=== PATIENT | male | born 1985 | race Caucasian/White ===

== ENCOUNTER 2017-04-13 11:33 | Emergency (ER) | payer OTHER ==
[2017-04-13 11:44] VITALS: RESP 18
--- NOTE | 2017-04-13 11:58 | C.PDOC ---
History Of Present Illness 32M c/o anterior chest pain and mid back pain for the last couple days. he says he has been lifting his child which makes it worse. he has not taken anything for pain. denies any pmh, meds, or drugs. Time Seen by Provider: 04/13/17 11:46 Chief Complaint (Nursing): Chest Pain Past Medical History Vital Signs: Last Vital Signs Temp 98.4 F 04/13/17 11:42 Pulse 93 H 04/13/17 11:42 Resp 18 04/13/17 11:42 BP 129/77 04/13/17 11:42 Pulse Ox 97 04/13/17 13:08 Family History: States: Other Other Family History: nc - Social History Hx Alcohol Use: No Hx Substance Use: No - Immunization History Hx Tetanus Toxoid Vaccination: Yes Hx Influenza Vaccination: Yes Hx Pneumococcal Vaccination: No Review Of Systems Constitutional: Negative for: Fever, Chills Cardiovascular: Positive for: Chest Pain. Negative for: Palpitations, Edema Respiratory: Negative for: Cough, Shortness of Breath Gastrointestinal: Negative for: Nausea, Vomiting, Abdominal Pain Musculoskeletal: Positive for: Back Pain Neurological: Negative for: Weakness, Numbness Physical Exam - Physical Exam Appears: Well, Non-toxic, No Acute Distress Skin: Warm, Dry Head: Atraumatic Oral Mucosa: Moist Chest: Tenderness (reproducible pain w palp over sternum) Cardiovascular: Rhythm Regular Respiratory: No Decreased Breath Sounds, No Accessory Muscle Use, No Rales, No Rhonchi, No Stridor, No Wheezing Gastrointestinal/Abdominal: Soft, No Tenderness Back: Paraspinal Tenderness Extremity: No Swelling Pulses: Left Radial: Normal, Right Radial: Normal Neurological/Psych: Oriented x3, Other (no focal deficits) ED Course And Treatment - Laboratory Results Result Diagrams: 04/13/17 12:21 04/13/17 12:21 O2 Sat by Pulse Oximetry: 97 Medical Decision Making Medical Decision Making: ecg- nsr 96, nl axis, no acute ischemia 120pm pt feels better. disc results, plan for f/u, rtr Disposition - Disposition Referrals: [facility] [Outside] Disposition: HOME/ ROUTINE Disposition Time: 13:07 Condition: STABLE Additional Instructions: Please follow up with your doctor. Return to the ER for any worsening symptoms or for any other concerns. Prescriptions: Naproxen [Naprosyn] 500 mg PO Q12H PRN #10 tablet PRN Reason: Pain, Moderate (4-7) Instructions: Chest Pain (ED) Forms: [facility] (Bengali), Gen Discharge Inst Georgian Print Language: BAHAMIAN - Clinical Impression Clinical Impression: Chest pain, Back pain
--- NOTE | 2017-04-13 12:08 | RAD ---
HISTORY: cp COMPARISON: None available. TECHNIQUE: Chest PA and lateral FINDINGS: LUNGS: No focal consolidation. Please note that chest x-ray has limited sensitivity for the detection of pulmonary masses. PLEURA: No significant pleural effusion identified. No definite pneumothorax . CARDIOVASCULAR: The cardiomediastinal silhouette appears within normal limits of size. OSSEOUS STRUCTURES: No acute osseous abnormality identified. VISUALIZED UPPER ABDOMEN: Unremarkable. OTHER FINDINGS: None. IMPRESSION: No focal consolidation, significant pleural effusion, or definite pneumothorax identified.
[2017-04-13 12:29] LABS: BASO % 0.4 % (0.0-2.0); EOS # 0.3 K/uL (0.0-0.7); EOS % 5.6 % (0.0-4.0); HEMATOCRIT 43.9 % (35.0-51.0); LYMPH # 2.2 K/uL (1.0-4.3); LYMPH % 36.5 % (20.0-40.0); MEAN CELL VOLUME 92.1 fL (80.0-94.0); MEAN CORPUSCULAR HEMOGLOBIN 31.4 pg (27.0-31.0); MEAN CORPUSCULAR HGB CONC 34.1 g/dL (33.0-37.0); MEAN PLATELET VOLUME 10.5 fL (7.2-11.7); MONO # 0.4 K/uL (0.0-0.8); MONO % 7.3 % (0.0-10.0); NRBC % 0.1 % (0.0-2.0); RED CELL DISTRIBUTION WIDTH 12.8 % (11.5-14.5); WHITE BLOOD COUNT 5.9 K/uL (4.8-10.8)
[2017-04-13 12:47] LABS: ALB/GLOB RATIO 1.3 (1.0-2.1); ALKALINE PHOSPHATASE 56 U/L (38-126); ALT/SGPT 72 U/L (21-72); AST/SGOT 48 U/L (17-59); BILIRUBIN,TOTAL 0.9 mg/dL (0.2-1.3); BLOOD UREA NITROGEN 12 mg/dL (9-20); CALCIUM 8.5 mg/dl (8.6-10.4); CARBON DIOXIDE 22 mmol/L (22-30); CHLORIDE 102 mmol/L (98-107); GFR AFRICAN-AMERICAN > 60; GLUCOSE,RANDOM 94 mg/dL (75-110); SODIUM 136 mmol/L (132-148); TOTAL PROTEIN 7.5 g/dL (6.3-8.3)
[2017-04-13 14:24] VITALS: BP 117/75; PULSE 76; TEMP 98.2; O2SAT 96
== END 2017-04-13 14:15 | disposition home or self-care (01) ==
LOC: C.ER 11:33
DX: R07.89 Other chest pain (principal); M54.9 Dorsalgia, unspecified
CPT/HCPCS: 71020; 80053; 83690; 84484; 85025; 96374; 99284; J1885

== ENCOUNTER 2017-09-22 15:25 | Emergency (ER) | payer OTHER ==
[2017-09-22 15:42] VITALS: BP 128/75; PULSE 87; RESP 16; TEMP 98.3; O2SAT 97
[2017-09-22] MEDS ORDERED: Lidocaine 2% Inj (20ml) INFIL STA (15:49)
[2017-09-22] MEDS ORDERED: Bacitracin 500 Units/gm Oint Foilpak UD TOP STA (15:49)
[2017-09-22] MEDS ORDERED: Tetanus/Diphtheria Toxoids 0.5 ml Syringe IM ONE (15:49)
--- NOTE | 2017-09-22 15:50 | C.PDOC ---
History Of Present Illness 32 year old male presents to the ED for evaluation of a laceration sustained at home prior to arrival. Patient reports that he was fixing a dryer at home when he accidentally cut himself with a sharp piece of metal. Patient does not remember the last Tetanus shot. Patient denies fever, chill, weakness, numbness. Time Seen by Provider: 09/22/17 15:47 Chief Complaint (Nursing): Abnormal Skin Integrity History Per: Patient History/Exam Limitations: no limitations Onset/Duration Of Symptoms: Hrs Current Symptoms Are (Timing): Still Present Location Of Injury: Left: Arm (distal forearm ) Quality Of Symptoms: Painful Recent travel outside of the [place]: No Additional History Per: Patient Past Medical History Reviewed: Historical Data, Nursing Documentation, Vital Signs Vital Signs: Last Vital Signs Temp 98.3 F 09/22/17 15:38 Pulse 87 09/22/17 15:38 Resp 16 09/22/17 15:38 BP 128/75 09/22/17 15:38 Pulse Ox 97 09/22/17 16:59 - Medical History PMH: No Chronic Diseases Surgical History: No Surg Hx Family History: States: Unknown Family Hx - Social History Hx Alcohol Use: No Hx Substance Use: No - Immunization History Hx Tetanus Toxoid Vaccination: Yes (2017) Hx Influenza Vaccination: Yes Hx Pneumococcal Vaccination: Yes Review Of Systems Constitutional: Negative for: Fever, Chills Cardiovascular: Negative for: Chest Pain Respiratory: Negative for: Cough, Shortness of Breath Skin: Positive for: Other (Laceration). Negative for: Rash Neurological: Negative for: Weakness, Numbness Physical Exam - Physical Exam Appears: Non-toxic, No Acute Distress Skin: Normal Color, Warm, Dry Head: Atraumatic, Normacephalic Eye(s): bilateral: Normal Inspection Nose: No Discharge Oral Mucosa: Moist Neck: Normal ROM, Supple Extremity: Normal ROM, No Tenderness, Capillary Refill (< 2 seconds), No Swelling, Other (2.5 cm linear laceration to left distal forearm above wrist) Pulses: Left Radial: Normal, Right Radial: Normal Neurological/Psych: Oriented x3, Normal Motor, Normal Sensation Gait: Steady ED Course And Treatment O2 Sat by Pulse Oximetry: 97 (ON RA) Pulse Ox Interpretation: Normal Laceration - Laceration Repair left distal forearm Wound Length (In cm): 2.5 Description Of Wound: Linear Wound Cleansed With: Sterile Saline Anesthesia: Lidocaine 2% Wound Examination: Irrigated With Saline, No FB With Wound Exploration Wound Closure: [place] (X6) Wound Complexity: Simple Medical Decision Making Medical Decision Making: Plan: * Bacitracin * Tetanus UTD Patient had bacitracin dressing applied and was sent home. Disposition - Disposition Disposition: HOME/ ROUTINE Disposition Time: 16:56 Condition: STABLE Additional Instructions: Follow up with your PMD within 1-2 days. Return to ED if feel worse. Staple removal in 10 days. Prescriptions: Bacitracin OINT 1 applic TP TID #45 g Instructions: Laceration Repair With Yared (DC) Forms: [facility] (Upper Sorbian) Print Language: KAZAKH - Clinical Impression Clinical Impression: Forearm laceration - PA / POLICE COMMISSIONER / Resident Statement MD/DO has reviewed & agrees with the documentation as recorded. - Scribe Statement The provider has reviewed the documentation as recorded by the Scribe Champ Miguel All medical record entries made by the Scribe were at my direction and personally dictated by me. I have reviewed the chart and agree that the record accurately reflects my personal performance of the history, physical exam, medical decision making, and the department course for this patient. I have also personally directed, reviewed, and agree with the discharge instructions and disposition.
[2017-09-22] MEDS ORDERED: Bacitracin 500 Units/gm Oint Foilpak UD ONE (16:28)
[2017-09-22] MEDS ORDERED: Tdap Vaccine 0.5 ml Vial (10-64 yrs) IM ONE (16:44)
== END 2017-09-22 17:08 | disposition home or self-care (01) ==
LOC: C.ER 15:25
DX: S51.812A Laceration without foreign body of left forearm, initial encounter (principal); W45.8XXA Other foreign body or object entering through skin, initial encounter; Y92.009 Unspecified place in unspecified non-institutional (private) residence as the place of occurrence of the external cause